=== PATIENT | male | born 1950 | race Caucasian/White ===

== ENCOUNTER 2022-06-30 12:27 | Inpatient (IN) | payer OTHER, MEDICARE ==
[~2022-06-30] VITALS: Ht 185.4 cm; Wt 173.7 kg
[~2022-06-30 12:27] MED LIST: FURO-149 PO; METO25TA6 PO; POTA8TAB66 PO; PRO40 PO; RIVA20TA PO
[2022-06-30 12:30] VITALS: BP_SYST 124
[2022-06-30 13:34] LABS: BASOPHILS # (AUTO) 0.1 K/uL (0.0-0.2); BASOPHILS % (AUTO) 0.7 % (0.0-2.0); EOSINOPHILS # (AUTO) 0.2 K/uL (0.0-0.4); HEMATOCRIT 38.6 % (36-54); HEMOGLOBIN 12.6 g/dL (14.0-18.0); LYMPHOCYTES # (AUTO) 0.8 K/uL (1.0-5.5); LYMPHOCYTES % (AUTO) 10.7 % (20.5-51.5); MEAN CORPUSCULAR HEMOGLOBIN 29 pg (27-31); MEAN CORPUSCULAR HGB CONC 33 % (32-36); MEAN CORPUSCULAR VOLUME 89 fL (79.0-98.0); MONOCYTES # (AUTO) 0.7 K/uL (0.0-1.0); MONOCYTES % (AUTO) 8.8 % (1.7-9.3); NEUTROPHILS # (AUTO) 5.8 K/uL (1.8-7.7); NEUTROPHILS % (AUTO) 76.8 % (40.0-70.0); PLATELET COUNT (AUTO) 226 K/uL (130-430); RED BLOOD CELL COUNT(AUTO) 4.36 MIL/uL (4.2-6.2); RED CELL DISTRIBUTION WIDTH 17.7 % (9.0-15.0); WHITE BLOOD COUNT (AUTO) 7.5 K/uL (4.8-10.8)
[2022-06-30 13:46] LABS: ANION GAP 7 (5-15); CALCIUM 9.2 mg/dL (8.4-11.0); CHLORIDE 102 mmol/L (98-107); CREATININE 0.87 mg/dL (0.55-1.30); GLUCOSE 120 mg/dL (70-99); UREA NITROGEN, BLOOD 17 mg/dL (8-21)
[2022-06-30 13:54] LABS: ALANINE AMINOTRANSFERASE 13 U/L (12-78); ALBUMIN 3.5 g/dL (3.4-4.8); ASPARTATE AMINOTRANSFERASE 18 U/L (10-37); TOTAL BILIRUBIN 0.9 mg/dL (0.0-1.0)
[2022-06-30] MEDS ORDERED: FUROSEMIDE 100 MG/10 ML VIAL IVP ONE (14:45)
[2022-06-30] MEDS ORDERED: ALBUTEROL SULFATE 0.083% 2.5 MG/3 ML VIAL.NEB INH PRN (15:15)
[2022-06-30] MEDS ORDERED: IPRATROPIUM BROM 0.5 MG/2.5 ML VIAL.NEB (ATROVENT) INH PRN (15:15)
[2022-06-30] MEDS ORDERED: APIX5TAB PO (18:37)
[2022-06-30] MEDS: IPRATROPIUM BROM 0.5 MG/2.5 ML VIAL.NEB (ATROVENT) INH SCH (19:00)
[2022-06-30] MEDS: ALBUTEROL SULFATE 0.083% 2.5 MG/3 ML VIAL.NEB INH SCH (19:00)
[2022-06-30 22:09] VITALS: BP_SYST 125
[2022-06-30] MEDS: RIVAROXABAN 10 MG TABLET PO SCH (23:00)
[2022-06-30] MEDS: PANTOPRAZOLE SODIUM 40 MG TAB PO SCH (23:00)
[2022-06-30] MEDS: FUROSEMIDE 40 MG TABLET PO SCH (23:00)
[2022-06-30] MEDS: POTASSIUM CHLORIDE 8 MEQ TABLET.SA PO SCH (23:00)
[2022-07-01] MEDS: METHYLPREDNISOLONE SOD SUCC 40 MG/ML VIAL IVP SCH ×5 (00:09→23:02)
[2022-07-01 00:30] VITALS: BP_SYST 117
[2022-07-01] MEDS: METOPROLOL TARTRATE 25 MG TABLET PO SCH ×3 (00:34→21:00)
[2022-07-01 00:37] VITALS: BP_SYST 112
[2022-07-01] MEDS: ALBUTEROL SULFATE 0.083% 2.5 MG/3 ML VIAL.NEB INH SCH ×4 (01:18→20:30)
[2022-07-01] MEDS: IPRATROPIUM BROM 0.5 MG/2.5 ML VIAL.NEB (ATROVENT) INH SCH ×4 (01:18→20:30)
[2022-07-01] MEDS ORDERED: cefTRIAXone 1 GM VIAL ONE (02:19)
[2022-07-01] MEDS: cefTRIAXone 1 GM in D5W 50 ML IV SCH ×2 (03:00→23:02)
[2022-07-01 08:00] VITALS: BP_SYST 103
[2022-07-01] MEDS: POTASSIUM CHLORIDE 8 MEQ TABLET.SA PO SCH (08:46)
[2022-07-01] MEDS: PANTOPRAZOLE SODIUM 40 MG TAB PO SCH (08:46)
[2022-07-01] MEDS: FUROSEMIDE 40 MG TABLET PO SCH (08:46)
[2022-07-01] MEDS: RIVAROXABAN 10 MG TABLET PO SCH (09:11)
[2022-07-01 18:02] VITALS: BP_SYST 114
[2022-07-01 18:03] VITALS: BP_SYST 104
[2022-07-01 20:00] VITALS: BP_SYST 99
[2022-07-02 00:03] VITALS: BP_SYST 99
[2022-07-02] MEDS: ALBUTEROL SULFATE 0.083% 2.5 MG/3 ML VIAL.NEB INH SCH ×4 (01:05→19:31)
[2022-07-02] MEDS: IPRATROPIUM BROM 0.5 MG/2.5 ML VIAL.NEB (ATROVENT) INH SCH ×4 (01:06→19:31)
[2022-07-02] MEDS: METHYLPREDNISOLONE SOD SUCC 40 MG/ML VIAL IVP SCH ×3 (05:10→17:23)
[2022-07-02 08:00] VITALS: BP_SYST 95
[2022-07-02] MEDS: METOPROLOL TARTRATE 25 MG TABLET PO SCH ×2 (09:00→21:00)
[2022-07-02] MEDS: FUROSEMIDE 40 MG TABLET PO SCH (09:00)
[2022-07-02] MEDS: PANTOPRAZOLE SODIUM 40 MG TAB PO SCH (09:16)
[2022-07-02] MEDS: POTASSIUM CHLORIDE 8 MEQ TABLET.SA PO SCH (09:17)
[2022-07-02] MEDS: RIVAROXABAN 10 MG TABLET PO SCH (09:19)
[2022-07-02] MEDS: cefTRIAXone 1 GM in D5W 50 ML IV SCH (23:00)
[2022-07-03] MEDS: ALBUTEROL SULFATE 0.083% 2.5 MG/3 ML VIAL.NEB INH SCH ×4 (01:39→19:52)
[2022-07-03] MEDS: IPRATROPIUM BROM 0.5 MG/2.5 ML VIAL.NEB (ATROVENT) INH SCH ×4 (01:40→19:52)
[2022-07-03 03:43] VITALS: BP_SYST 118
[2022-07-03] MEDS: METHYLPREDNISOLONE SOD SUCC 40 MG/ML VIAL IVP SCH ×5 (06:00→21:16)
[2022-07-03 09:21] VITALS: BP_SYST 118
[2022-07-03] MEDS: POTASSIUM CHLORIDE 8 MEQ TABLET.SA PO SCH (10:37)
[2022-07-03] MEDS: FUROSEMIDE 40 MG TABLET PO SCH (10:38)
[2022-07-03] MEDS: METOPROLOL TARTRATE 25 MG TABLET PO SCH ×2 (10:39→22:12)
[2022-07-03] MEDS: PANTOPRAZOLE SODIUM 40 MG TAB PO SCH (10:40)
[2022-07-03] MEDS: RIVAROXABAN 10 MG TABLET PO SCH (10:44)
[2022-07-03] MEDS: cefTRIAXone 1 GM in D5W 50 ML IV SCH (22:08)
[2022-07-03 23:08] VITALS: BP_SYST 119
[2022-07-04 01:19] VITALS: BP_SYST 120
[2022-07-04] MEDS: ALBUTEROL SULFATE 0.083% 2.5 MG/3 ML VIAL.NEB INH SCH ×4 (01:21→19:45)
[2022-07-04] MEDS: IPRATROPIUM BROM 0.5 MG/2.5 ML VIAL.NEB (ATROVENT) INH SCH ×4 (01:21→19:45)
[2022-07-04 01:41] VITALS: BP_SYST 119
[2022-07-04] MEDS: METHYLPREDNISOLONE SOD SUCC 40 MG/ML VIAL IVP SCH ×3 (06:40→23:10)
[2022-07-04 07:40] VITALS: BP_SYST 114
[2022-07-04] MEDS: POTASSIUM CHLORIDE 8 MEQ TABLET.SA PO SCH (08:45)
[2022-07-04] MEDS: PANTOPRAZOLE SODIUM 40 MG TAB PO SCH (08:45)
[2022-07-04] MEDS: FUROSEMIDE 40 MG TABLET PO SCH (08:46)
[2022-07-04] MEDS: METOPROLOL TARTRATE 25 MG TABLET PO SCH ×2 (08:46→22:28)
[2022-07-04] MEDS: RIVAROXABAN 10 MG TABLET PO SCH (08:47)
[2022-07-04 12:00] VITALS: BP_SYST 117
[2022-07-04 16:21] VITALS: BP_SYST 115
[2022-07-04 22:54] VITALS: BP_SYST 117
[2022-07-04] MEDS: cefTRIAXone 1 GM in D5W 50 ML IV SCH (23:11)
[2022-07-05] VITALS: BP_SYST 101
[2022-07-05 00:06] VITALS: BP_SYST 101
[2022-07-05 08:00] VITALS: BP_SYST 102
[2022-07-05] MEDS: IPRATROPIUM BROM 0.5 MG/2.5 ML VIAL.NEB (ATROVENT) INH SCH ×3 (08:10→19:36)
[2022-07-05] MEDS: ALBUTEROL SULFATE 0.083% 2.5 MG/3 ML VIAL.NEB INH SCH ×3 (08:10→19:36)
[2022-07-05] MEDS: METHYLPREDNISOLONE SOD SUCC 40 MG/ML VIAL IVP SCH ×2 (08:49→21:28)
[2022-07-05] MEDS: POTASSIUM CHLORIDE 8 MEQ TABLET.SA PO SCH (10:05)
[2022-07-05] MEDS: FUROSEMIDE 40 MG TABLET PO SCH (10:05)
[2022-07-05] MEDS: PANTOPRAZOLE SODIUM 40 MG TAB PO SCH (10:06)
[2022-07-05] MEDS: METOPROLOL TARTRATE 25 MG TABLET PO SCH ×3 (10:06→21:38)
[2022-07-05] MEDS: RIVAROXABAN 10 MG TABLET PO SCH (10:09)
[2022-07-05 11:32] VITALS: BP_SYST 126
[2022-07-05 15:28] VITALS: BP_SYST 100
[2022-07-05 20:00] VITALS: BP_SYST 121
[2022-07-05] MEDS: cefTRIAXone 1 GM in D5W 50 ML IV SCH (21:28)
[2022-07-06] MEDS: ALBUTEROL SULFATE 0.083% 2.5 MG/3 ML VIAL.NEB INH SCH ×3 (03:45→13:27)
[2022-07-06] MEDS: IPRATROPIUM BROM 0.5 MG/2.5 ML VIAL.NEB (ATROVENT) INH SCH ×3 (03:45→13:26)
[2022-07-06 04:00] VITALS: BP_SYST 127
[2022-07-06 08:00] VITALS: BP_SYST 112
[2022-07-06] MEDS: FUROSEMIDE 40 MG TABLET PO SCH (08:54)
[2022-07-06] MEDS: METOPROLOL TARTRATE 25 MG TABLET PO SCH (08:55)
[2022-07-06] MEDS: PANTOPRAZOLE SODIUM 40 MG TAB PO SCH (08:55)
[2022-07-06] MEDS: POTASSIUM CHLORIDE 8 MEQ TABLET.SA PO SCH (08:55)
[2022-07-06] MEDS: RIVAROXABAN 10 MG TABLET PO SCH (08:56)
[2022-07-06] MEDS: METHYLPREDNISOLONE SOD SUCC 40 MG/ML VIAL IVP SCH (09:18)
[2022-07-06 12:00] VITALS: BP_SYST 130
[2022-07-06 12:09] VITALS: BP_SYST 130
== END 2022-07-06 14:20 | disposition home health service (06) | DRG 291 ==
LOC: SED 12:27 → STU 14:55
PROVIDERS: ADMIT Family Medicine; ATTEND Family Medicine
PROC: 5A09357 Assistance with Respiratory Ventilation, Less than 24 Consecutive Hours, Continuous Positive Airway Pressure (ICD-10-PCS; principal; 2022-07-01)
PROC: 5A09357 Assistance with Respiratory Ventilation, Less than 24 Consecutive Hours, Continuous Positive Airway Pressure (ICD-10-PCS; 2022-07-02)
PROC: 5A09357 Assistance with Respiratory Ventilation, Less than 24 Consecutive Hours, Continuous Positive Airway Pressure (ICD-10-PCS; 2022-07-03)
PROC: 5A09357 Assistance with Respiratory Ventilation, Less than 24 Consecutive Hours, Continuous Positive Airway Pressure (ICD-10-PCS; 2022-07-04)
PROC: 5A09357 Assistance with Respiratory Ventilation, Less than 24 Consecutive Hours, Continuous Positive Airway Pressure (ICD-10-PCS; 2022-07-05)
PROC: 5A09357 Assistance with Respiratory Ventilation, Less than 24 Consecutive Hours, Continuous Positive Airway Pressure (ICD-10-PCS; 2022-07-06)
DX: I11.0 Hypertensive heart disease with heart failure (principal); I50.33 Acute on chronic diastolic (congestive) heart failure; J96.21 Acute and chronic respiratory failure with hypoxia; J44.1 Chronic obstructive pulmonary disease with (acute) exacerbation; J45.901 Unspecified asthma with (acute) exacerbation; Z68.43 Body mass index [BMI] 50.0-59.9, adult; I48.0 Paroxysmal atrial fibrillation; Z96.659 Presence of unspecified artificial knee joint; E66.01 Morbid (severe) obesity due to excess calories; M25.512 Pain in left shoulder; G47.33 Obstructive sleep apnea (adult) (pediatric); Z99.81 Dependence on supplemental oxygen
CPT/HCPCS: 36415; 71045; 73030; 80053; 83880; 84484; 85025; 87081; 93005; 94640; 94660; 94760; 96374; 99285; G0378; J0696; J1030; J1940; J7060; J7613

== ENCOUNTER 2022-09-12 02:53 | Emergency (ER) | payer OTHER, MEDICARE ==
[~2022-09-12] VITALS: Ht 185.4 cm; Wt 155.1 kg
[2022-09-12 03:00] VITALS: BP_SYST 147
[2022-09-12] MEDS ORDERED: CARB15DR93 EACH EAR (03:47)
[2022-09-12 04:08] VITALS: BP_SYST 128
== END 2022-09-12 04:17 | disposition home or self-care (01) ==
LOC: SED 02:53
DX: H61.22 Impacted cerumen, left ear (principal); Z79.899 Other long term (current) drug therapy
CPT/HCPCS: 99282

== ENCOUNTER 2023-04-03 13:06 | Emergency (ER) | payer OTHER, MEDICARE ==
[~2023-04-03] VITALS: Ht 185.4 cm; Wt 163.3 kg
[~2023-04-03 13:06] MED LIST changes: +CARB15DR93 EACH EAR
[2023-04-03 13:20] VITALS: BP_SYST 98; PULSE 98; RESP 20; TEMP 98.4; O2SAT 88
[2023-04-03 14:04] LABS: BASOPHILS % (AUTO) 0.4 % (0.0-2.0); EOSINOPHILS # (AUTO) 0.3 K/uL (0.0-0.4); HEMATOCRIT 39.1 % (36-54); HEMOGLOBIN 12.6 g/dL (14.0-18.0); LYMPHOCYTES # (AUTO) 0.7 K/uL (1.0-5.5); LYMPHOCYTES % (AUTO) 9.1 % (20.5-51.5); MEAN CORPUSCULAR HEMOGLOBIN 29 pg (27-31); MEAN CORPUSCULAR HGB CONC 32 % (32-36); MEAN CORPUSCULAR VOLUME 91 fL (79.0-98.0); MONOCYTES # (AUTO) 0.5 K/uL (0.0-1.0); MONOCYTES % (AUTO) 7.2 % (1.7-9.3); NEUTROPHILS % (AUTO) 79.3 % (40.0-70.0); PLATELET COUNT (AUTO) 191 K/uL (130-430); RED BLOOD CELL COUNT(AUTO) 4.32 MIL/uL (4.2-6.2); RED CELL DISTRIBUTION WIDTH 15.1 % (9.0-15.0); WHITE BLOOD COUNT (AUTO) 7.6 K/uL (4.8-10.8)
[2023-04-03 14:21] LABS: ANION GAP 4 (5-15); CALCIUM 8.6 mg/dL (8.4-11.0); CARBON DIOXIDE 34 mmol/L (23-29); CHLORIDE 99 mmol/L (98-107); CREATININE 0.93 mg/dL (0.55-1.30); GLUCOSE 153 mg/dL (74-106); POTASSIUM 4.1 mmol/L (3.5-5.1); SODIUM SERUM 137 mmol/L (136-145); UREA NITROGEN, BLOOD 17 mg/dL (8-21)
[2023-04-03 14:32] LABS: ALANINE AMINOTRANSFERASE 15 U/L (12-78); ALBUMIN 3.5 g/dL (3.4-4.8); ASPARTATE AMINOTRANSFERASE 14 U/L (10-37); TOTAL BILIRUBIN 0.8 mg/dL (0.0-1.0); TOTAL PROTEIN, SERUM 6.8 g/dL (6.4-8.3)
[2023-04-03] MEDS ORDERED: PRED20TA PO (14:45)
[2023-04-03] MEDS ORDERED: IPRATROPIUM BROM 0.5 MG/2.5 ML VIAL.NEB (ATROVENT) INH ONE ×2 (14:45→15:00)
[2023-04-03] MEDS ORDERED: ALBU2.5V7 INH (14:45)
[2023-04-03] MEDS ORDERED: ALBUTEROL SULFATE 0.083% 2.5 MG/3 ML VIAL.NEB INH ONE ×2 (14:45→15:00)
[2023-04-03] MEDS ORDERED: predniSONE 20 MG TABLET PO ONE (14:45)
[2023-04-03 15:40] VITALS: BP_SYST 142; PULSE 98; RESP 20; TEMP 98.4
[2023-04-03 15:49] VITALS: O2SAT 95
== END 2023-04-03 15:39 | disposition home or self-care (01) ==
LOC: SED 13:06
DX: J44.1 Chronic obstructive pulmonary disease with (acute) exacerbation (principal); R06.02 Shortness of breath; R05.9 Cough, unspecified; I11.0 Hypertensive heart disease with heart failure; I50.9 Heart failure, unspecified; Z79.899 Other long term (current) drug therapy
CPT/HCPCS: 99285; 71045; 80053; 83880; 85025; 84484; 36415; 93005; 94640; 83605; 82397; J7512

== ENCOUNTER 2023-06-01 12:29 | Inpatient (IN) | payer OTHER, MEDICARE ==
[~2023-06-01] VITALS: Ht 185.4 cm; Wt 183.3 kg
[~2023-06-01 12:29] MED LIST changes: +ALBU2.5V7 INH; +PRED20TA PO
[2023-06-01 13:19] VITALS: BP_SYST 113; PULSE 113; RESP 18; TEMP 97; O2SAT 88
[2023-06-01] MEDS ORDERED: IPRATROPIUM BROM 0.5 MG/2.5 ML VIAL.NEB (ATROVENT) INH ONE (13:45)
[2023-06-01] MEDS ORDERED: ALBUTEROL SULFATE 0.083% 2.5 MG/3 ML VIAL.NEB INH ONE (13:45)
[2023-06-01 13:58] LABS: BASOPHILS % (AUTO) 0.3 % (0.0-2.0); EOSINOPHILS # (AUTO) 0.2 K/uL (0.0-0.4); EOSINOPHILS % (AUTO) 1.8 % (0.0-4.0); HEMATOCRIT 38.8 % (36-54); HEMOGLOBIN 12.6 g/dL (14.0-18.0); LYMPHOCYTES # (AUTO) 0.5 K/uL (1.0-5.5); LYMPHOCYTES % (AUTO) 6.1 % (20.5-51.5); MEAN CORPUSCULAR HEMOGLOBIN 28 pg (27-31); MEAN CORPUSCULAR HGB CONC 33 % (32-36); MEAN CORPUSCULAR VOLUME 87 fL (79.0-98.0); MONOCYTES # (AUTO) 0.6 K/uL (0.0-1.0); MONOCYTES % (AUTO) 6.7 % (1.7-9.3); NEUTROPHILS # (AUTO) 7.3 K/uL (1.8-7.7); NEUTROPHILS % (AUTO) 85.1 % (40.0-70.0); PLATELET COUNT (AUTO) 170 K/uL (130-430); RED BLOOD CELL COUNT(AUTO) 4.48 MIL/uL (4.2-6.2); RED CELL DISTRIBUTION WIDTH 17.7 % (9.0-15.0); WHITE BLOOD COUNT (AUTO) 8.6 K/uL (4.8-10.8)
[2023-06-01 14:13] LABS: ANION GAP 3 (5-15); CALCIUM 8.9 mg/dL (8.4-11.0); CARBON DIOXIDE 37 mmol/L (23-29); CHLORIDE 106 mmol/L (98-107); CREATININE 1.02 mg/dL (0.55-1.30); GLUCOSE 140 mg/dL (74-106); SODIUM SERUM 146 mmol/L (136-145); UREA NITROGEN, BLOOD 21 mg/dL (8-21)
[2023-06-01 14:20] LABS: ALANINE AMINOTRANSFERASE 18 U/L (12-78); ALBUMIN 3.2 g/dL (3.4-4.8); ASPARTATE AMINOTRANSFERASE 13 U/L (10-37); TOTAL PROTEIN, SERUM 6.4 g/dL (6.4-8.3)
[2023-06-01] MEDS ORDERED: FUROSEMIDE 40 MG/4 ML VIAL IVP ONE (15:15)
[2023-06-01] MEDS ORDERED: IPRATROPIUM/ALBUTEROL SULFATE 3 ML AMPUL.NEB (DUONEB) INH PRN (17:15)
[2023-06-01 17:37] VITALS: PULSE 86; O2SAT 93
[2023-06-01] MEDS ORDERED: cefTRIAXone 2 GM VIAL ONE (20:17)
[2023-06-01] MEDS: IPRATROPIUM/ALBUTEROL SULFATE 3 ML AMPUL.NEB (DUONEB) INH SCH (21:21)
[2023-06-01 21:32] VITALS: O2SAT 93
[2023-06-01] MEDS: FUROSEMIDE 40 MG/4 ML VIAL IVP SCH (21:43)
[2023-06-01] MEDS: METHYLPREDNISOLONE SOD SUCC 40 MG/ML VIAL IVP SCH (22:16)
[2023-06-01] MEDS ORDERED: ALBUTEROL SULFATE 0.083% 2.5 MG/3 ML VIAL.NEB INH PRN (22:45)
[2023-06-02] MEDS: METOPROLOL TARTRATE 25 MG TABLET PO SCH ×3 (00:23→23:31)
[2023-06-02] MEDS: IPRATROPIUM/ALBUTEROL SULFATE 3 ML AMPUL.NEB (DUONEB) INH SCH ×4 (01:09→19:00)
[2023-06-02 01:18] VITALS: O2SAT 92
[2023-06-02 05:53] LABS: ANION GAP 8 (5-15); CALCIUM 8.5 mg/dL (8.4-11.0); CARBON DIOXIDE 34 mmol/L (23-29); CHLORIDE 103 mmol/L (98-107); CREATININE 1.04 mg/dL (0.55-1.30); GLUCOSE 154 mg/dL (74-106); POTASSIUM 4.4 mmol/L (3.5-5.1); SODIUM SERUM 145 mmol/L (136-145); UREA NITROGEN, BLOOD 22 mg/dL (8-21)
[2023-06-02] MEDS: METHYLPREDNISOLONE SOD SUCC 40 MG/ML VIAL IVP SCH ×3 (07:41→23:29)
[2023-06-02 07:50] VITALS: O2SAT 91
[2023-06-02] MEDS ORDERED: cefTRIAXone 2 GM VIAL IV SCH (09:00)
[2023-06-02] MEDS: RIVAROXABAN 10 MG TABLET PO SCH (10:16)
[2023-06-02] MEDS: PANTOPRAZOLE SODIUM 40 MG TAB PO SCH (10:17)
[2023-06-02] MEDS: POTASSIUM CHLORIDE 8 MEQ TABLET.ER PO SCH (10:17)
[2023-06-02] MEDS: FUROSEMIDE 40 MG/4 ML VIAL IVP SCH ×2 (10:17→23:33)
[2023-06-02 13:20] VITALS: O2SAT 92
[2023-06-02] MEDS ORDERED: METHYLPREDNISOLONE SOD SUCC 40 MG/ML VIAL ONE (15:33)
[2023-06-02] MEDS ORDERED: cefTRIAXone 2 GM VIAL ONE (19:52)
[2023-06-02 21:05] VITALS: BP_SYST 102; PULSE 103; RESP 18; TEMP 98.2; O2SAT 95
[2023-06-02 21:20] VITALS: BP_SYST 102; PULSE 103; RESP 18; TEMP 98.2
[2023-06-02 23:38] VITALS: PULSE 107
[2023-06-03] VITALS (12 sets, daily range): BP systolic 100–120; PULSE 90–105; RESP 14–22; TEMP 97.8–98.9; O2SAT 87–98
[2023-06-03] MEDS: IPRATROPIUM/ALBUTEROL SULFATE 3 ML AMPUL.NEB (DUONEB) INH SCH ×4 (01:22→19:51)
[2023-06-03] MEDS: METHYLPREDNISOLONE SOD SUCC 40 MG/ML VIAL IVP SCH ×3 (06:31→23:26)
[2023-06-03] MEDS: PANTOPRAZOLE SODIUM 40 MG TAB PO SCH (09:11)
[2023-06-03] MEDS: METOPROLOL TARTRATE 25 MG TABLET PO SCH ×2 (09:12→23:26)
[2023-06-03] MEDS: POTASSIUM CHLORIDE 8 MEQ TABLET.ER PO SCH (09:12)
[2023-06-03] MEDS: RIVAROXABAN 10 MG TABLET PO SCH (09:13)
[2023-06-03] MEDS: FUROSEMIDE 40 MG/4 ML VIAL IVP SCH ×2 (09:52→23:27)
[2023-06-03] MEDS: VANCOMYCIN HCL 1,500 MG in NS 250 ML IV SCH (15:50)
[2023-06-04] VITALS (14 sets, daily range): BP systolic 109–128; PULSE 77–112; RESP 18–22; TEMP 97.7–98.8; O2SAT 93–98
[2023-06-04] MEDS: IPRATROPIUM/ALBUTEROL SULFATE 3 ML AMPUL.NEB (DUONEB) INH SCH ×3 (00:39→23:01)
[2023-06-04] MEDS: VANCOMYCIN HCL 1,500 MG in NS 250 ML IV SCH ×2 (01:18→14:55)
[2023-06-04] MEDS: METHYLPREDNISOLONE SOD SUCC 40 MG/ML VIAL IVP SCH ×2 (07:03→21:30)
[2023-06-04 07:49] LABS: HEMATOCRIT 37.4 % (36-54); HEMOGLOBIN 12.2 g/dL (14.0-18.0); LYMPHOCYTES # (AUTO) 0.3 K/uL (1.0-5.5); LYMPHOCYTES % (AUTO) 2.7 % (20.5-51.5); MEAN CORPUSCULAR HEMOGLOBIN 28 pg (27-31); MEAN CORPUSCULAR HGB CONC 33 % (32-36); MEAN CORPUSCULAR VOLUME 86 fL (79.0-98.0); MONOCYTES # (AUTO) 0.5 K/uL (0.0-1.0); NEUTROPHILS # (AUTO) 9.6 K/uL (1.8-7.7); NEUTROPHILS % (AUTO) 92.3 % (40.0-70.0); PLATELET COUNT (AUTO) 169 K/uL (130-430); RED BLOOD CELL COUNT(AUTO) 4.35 MIL/uL (4.2-6.2); RED CELL DISTRIBUTION WIDTH 17.5 % (9.0-15.0); WHITE BLOOD COUNT (AUTO) 10.4 K/uL (4.8-10.8)
[2023-06-04 08:01] LABS: ALANINE AMINOTRANSFERASE 7 U/L (12-78); ALBUMIN 3.2 g/dL (3.4-4.8); ANION GAP 4 (5-15); ASPARTATE AMINOTRANSFERASE 13 U/L (10-37); CALCIUM 8.7 mg/dL (8.4-11.0); CARBON DIOXIDE 35 mmol/L (23-29); CHLORIDE 102 mmol/L (98-107); CREATININE 0.91 mg/dL (0.55-1.30); GLUCOSE 207 mg/dL (74-106); POTASSIUM 4.4 mmol/L (3.5-5.1); SODIUM SERUM 141 mmol/L (136-145); TOTAL BILIRUBIN 0.7 mg/dL (0.0-1.0); TOTAL PROTEIN, SERUM 6.5 g/dL (6.4-8.3); UREA NITROGEN, BLOOD 29 mg/dL (8-21)
[2023-06-04] MEDS: FUROSEMIDE 40 MG/4 ML VIAL IVP SCH ×2 (10:11→21:30)
[2023-06-04] MEDS: PANTOPRAZOLE SODIUM 40 MG TAB PO SCH (10:14)
[2023-06-04] MEDS: RIVAROXABAN 10 MG TABLET PO SCH (10:14)
[2023-06-04] MEDS: METOPROLOL TARTRATE 25 MG TABLET PO SCH ×2 (10:14→21:00)
[2023-06-04] MEDS: POTASSIUM CHLORIDE 8 MEQ TABLET.ER PO SCH (10:14)
[2023-06-05] VITALS (13 sets, daily range): BP systolic 104–119; PULSE 66–110; RESP 16–20; TEMP 97–98.3; O2SAT 91–97
[2023-06-05] MEDS: IPRATROPIUM/ALBUTEROL SULFATE 3 ML AMPUL.NEB (DUONEB) INH SCH ×4 (01:01→19:30)
[2023-06-05 01:18] LABS: ANION GAP 3 (5-15); CALCIUM 7.8 mg/dL (8.4-11.0); CARBON DIOXIDE 37 mmol/L (23-29); CHLORIDE 101 mmol/L (98-107); CREATININE 0.92 mg/dL (0.55-1.30); GLUCOSE 197 mg/dL (74-106); POTASSIUM 4.1 mmol/L (3.5-5.1); SODIUM SERUM 141 mmol/L (136-145); UREA NITROGEN, BLOOD 30 mg/dL (8-21)
[2023-06-05] MEDS: VANCOMYCIN HCL 1,500 MG in NS 250 ML IV SCH ×2 (02:12→13:50)
[2023-06-05] MEDS: POTASSIUM CHLORIDE 8 MEQ TABLET.ER PO SCH (09:09)
[2023-06-05] MEDS: FUROSEMIDE 40 MG/4 ML VIAL IVP SCH ×2 (09:09→20:50)
[2023-06-05] MEDS: RIVAROXABAN 10 MG TABLET PO SCH (09:10)
[2023-06-05] MEDS: METHYLPREDNISOLONE SOD SUCC 40 MG/ML VIAL IVP SCH ×2 (09:11→20:49)
[2023-06-05] MEDS: METOPROLOL TARTRATE 25 MG TABLET PO SCH ×2 (09:11→20:48)
[2023-06-05] MEDS: PANTOPRAZOLE SODIUM 40 MG TAB PO SCH (09:11)
[2023-06-06] VITALS (10 sets, daily range): BP systolic 99–121; PULSE 81–110; RESP 15–20; TEMP 98.2–98.6; O2SAT 88–96
[2023-06-06] MEDS: VANCOMYCIN HCL 1,500 MG in NS 250 ML IV SCH (02:08)
[2023-06-06] MEDS: IPRATROPIUM/ALBUTEROL SULFATE 3 ML AMPUL.NEB (DUONEB) INH SCH ×2 (07:25→13:45)
[2023-06-06] MEDS: RIVAROXABAN 10 MG TABLET PO SCH (10:03)
[2023-06-06] MEDS: POTASSIUM CHLORIDE 8 MEQ TABLET.ER PO SCH (10:03)
[2023-06-06] MEDS: METOPROLOL TARTRATE 25 MG TABLET PO SCH (10:04)
[2023-06-06] MEDS: PANTOPRAZOLE SODIUM 40 MG TAB PO SCH (10:04)
[2023-06-06] MEDS: METHYLPREDNISOLONE SOD SUCC 40 MG/ML VIAL IVP SCH (10:05)
[2023-06-06] MEDS: FUROSEMIDE 40 MG/4 ML VIAL IVP SCH (10:06)
== END 2023-06-06 17:35 | DRG 193 ==
LOC: SED 12:29 → STU 17:13
PROVIDERS: ADMIT Family Medicine; ATTEND Family Medicine
DX: J18.9 Pneumonia, unspecified organism (principal); J96.20 Acute and chronic respiratory failure, unspecified whether with hypoxia or hypercapnia; E66.2 Morbid (severe) obesity with alveolar hypoventilation; I48.20 Chronic atrial fibrillation, unspecified; Z68.43 Body mass index [BMI] 50.0-59.9, adult; J44.1 Chronic obstructive pulmonary disease with (acute) exacerbation; J44.0 Chronic obstructive pulmonary disease with (acute) lower respiratory infection; I42.9 Cardiomyopathy, unspecified; I50.810 Right heart failure, unspecified; I27.81 Cor pulmonale (chronic); I50.9 Heart failure, unspecified; Z96.651 Presence of right artificial knee joint; I11.0 Hypertensive heart disease with heart failure; M17.0 Bilateral primary osteoarthritis of knee; I27.20 Pulmonary hypertension, unspecified; Z79.01 Long term (current) use of anticoagulants; Z79.899 Other long term (current) drug therapy; Z87.891 Personal history of nicotine dependence; Z99.81 Dependence on supplemental oxygen
CPT/HCPCS: 36415; 71045; 80048; 80053; 80202; 83880; 84484; 85025; 87040; 87186-TC; 93005; 93306; 94640; 94660; 94760; 97116-GP; 97530-GP; 99285; G0378; J0696; J1030; J1940; J1956; J3370; J7050; J7060